=== PATIENT | female | born 1975 | race Two or more races ===

== ENCOUNTER 2024-04-12 10:10 | Observation (INO) | payer MEDICAID, SELFPAY ==
[2024-04-12 10:25] VITALS: BP 90/60; PULSE 85; RESP 17; TEMP 36.9; O2SAT 96; BMI 25.4
--- NOTE | 2024-04-12 10:32 | XR_ITS ---
Examination: CT abdomen and pelvis without contrast. Coronal 3-D reconstructions. Sagittal 2-D reconstructions. Date and time of exam:April 04, 2024 1333 hrs. Indications: Epigastric pain and vomiting onset today CTDI: vol (mGy): 7.26 DLP: (mGycm): 106 Technique: Axial images of the abdomen have been obtained, 3 mm slice thickness Intravenous contrast material has not been administered. Low dose protocols were performed. One or more of the following dose reduction techniques were used; automated exposure control, adjustment of the mA and/or KV according to patient size, use of iterative reconstruction technique. Findings: No aspiration pneumonia No focal liver or splenic lesion Absent gallbladder No pancreatic or adrenal mass No renal or ureteral calculi, no hydronephrosis Aorta normal size 20 mm fat-containing umbilical hernia Fluid-filled enlarged inflamed appendix medial to the cecum, axial images 133 through 151 No free air No pelvic abscess No pelvic mass Contracted urinary bladder Impression: Acute appendicitis Negative for pelvic abscess
--- NOTE | 2024-04-12 10:33 | PD.EDABDPN ---
ED Abdominal Pain RME/HPI General Chief Complaint: Abdominal Pain Stated complaint: Abdominal pain/epigastric pain Time seen by provider: 04/12/24 10:19 Arrival date/time: 04/12/24 10:10 48-year-old female with a history of a cholecystectomy presents to the emergency room with a chief complaint of 10 out of 10 epigastric pain that radiates to the left upper and lower quadrants x 3 days Source: patient Mode of arrival: ambulatory Limitations: no limitations Related Data Allergies Allergy/AdvReac Type Severity Reaction Status Date / Time No Known Allergies Allergy Verified 04/12/24 10:16 Review of Systems Review of Systems Systems Reviewed: All systems reviewed, normal except as documented Constitutional Constitutional: Reports system reviewed and no additional complaints, except as documented, Denies fatigue, Denies fever(s), Denies headache(s) and Denies weakness Eyes Eyes: Reports system reviewed and no additional complaints, except as documented, Denies blurry vision and Denies change in vision ENT Ears, Nose, Mouth, and Throat: Reports system reviewed and no additional complaints, except as documented, Denies otalgia, Denies headache(s), Denies nasal congestion, Denies throat swelling and Denies vertigo Cardiovascular Cardiovascular: Reports system reviewed and no additional complaints, except as documented, Denies chest pain, Denies dyspnea and Denies dyspnea on exertion Respiratory Respiratory: Reports system reviewed and no additional complaints, except as documented, Denies chest congestion, Denies cough, Denies dyspnea, Denies dyspnea on exertion and Denies wheezing Gastrointestinal Gastrointestinal: Reports system reviewed and no additional complaints, except as documented, Reports abdominal pain, Reports cramping, Reports nausea and Reports vomiting Genitourinary Genitourinary: Reports system reviewed and no additional complaints, except as documented Musculoskeletal Musculoskeletal: Reports system reviewed and no additional complaints, except as documented and Denies back pain Integumentary/Breasts Skin/Breast: Reports system reviewed and no additional complaints, except as documented and Denies wounds Neurologic Neurologic: Reports system reviewed and no additional complaints, except as documented, Denies confusion, Denies headache(s), Denies lack of coordination, Denies vertigo and Denies weakness Psychiatric Psychiatric: Reports system reviewed and no additional complaints, except as documented, Denies anxiety, Denies confusion, Denies depression, Denies paranoia, Denies suicidal ideation and Denies tactile hallucinations Endocrine Endocrine: Reports system reviewed and no additional complaints, except as documented and Denies fatigue Hematologic/Lymphatic Hematologic/Lymphatic: Reports system reviewed and no additional complaints, except as documented and Denies lymphadenopathy Allergic/Immunologic Allergic/Immunologic: Reports system reviewed and no additional complaints, except as documented, Denies throat swelling, Denies urticaria and Denies wheezing Past Medical History Past Medical History CARDIAC: Negative Congestive Heart Failure RESPIRATORY: Negative Chronic Obstructive Pulmonary Disease (COPD) GASTROINTESTINAL: Positive Gall Bladder Disease (cholelithiasis) GENITOURINARY: Negative Renal Disease ENDOCRINE: Negative Diabetes Mellitus Type 1 or Diabetes Mellitus Type 2 Social History SMOKING STATUS: Current some day smoker ED Exam General Limitations: Present no limitations General appearance: Present alert and in no apparent distress Head Head exam: Present atraumatic Eye Eye exam: Present normal appearance, PERRL and EOMI ENT ENT exam: Present normal exam, normal oropharynx and mucous membranes moist Neck Neck exam: Present normal inspection, full ROM and trachea midline Chest Chest inspection: Present normal inspection and symmetric chest wall rise Respiratory Respiratory exam: Present normal lung sounds bilaterally Cardiovascular Cardiovascular exam: Present regular rate, normal rhythm and normal heart sounds Abdominal Exam Abdominal exam: Present soft, tenderness and normal bowel sounds; Absent Ceja's sign Abdominal tenderness: Present epigastrium and moderate Extremities Exam Extremities exam: Present normal inspection and full ROM Back Exam Back exam: Present normal inspection and full ROM Neurological Exam Neurological exam: Present alert, oriented X3 and CN II-XII intact Psychiatric Psychiatric exam: Present normal affect and normal mood Skin Skin exam: Present warm, dry, intact and normal color Course Quality Measures none Orders Category Date Time Status Admit to Inpatient Status Routine Admission 04/12/24 16:47 Active Patient Condition Routine Admission 04/12/24 16:47 Ordered COVID-19 Screening Questionnaire NOW Care 04/12/24 16:[address] Screening NOW Care 04/12/24 15:37 Active Decision to Admit X1 Care 04/12/24 16:46 Active Notify provider NEEDED Care 04/12/24 16:47 Active Vital Signs, Non-Routine Q4H Care 04/12/24 17:00 Ordered Vital Signs, Non-Routine Q4H Care 04/12/24 21:[address] abdomen pelvis w con Stat Exams 04/12/24 15:[address] abdomen pelvis wo con Stat Exams 04/12/24 10:32 Completed Blood Culture (Lab) Routine Lab 04/12/24 16:49 Ordered CBC AM DRAW Lab 04/13/24 05:00 Ordered CBC Stat Lab 04/12/24 10:44 Completed CMP [Comprehensive Metabolic Panel] Stat Lab 04/12/24 10:44 Completed HCG Qualitative,Urine Stat Lab 04/12/24 12:45 Completed Lipase Stat Lab 04/12/24 10:44 Completed Renal Function Panel AM DRAW Lab 04/13/24 05:00 Ordered Renal Function Panel AM DRAW Lab 04/14/24 05:00 Ordered Renal Function Panel AM DRAW Lab 04/15/24 05:00 Ordered UA [Urinalysis] Stat Lab 04/12/24 12:45 Completed Urine Culture Stat Lab 04/12/24 12:45 Received Acetaminophen Tab [Tylenol ES Tab] Med 04/12/24 15:36 Discontinued 1,000 mg PO X1 ONE Enoxaparin [Lovenox] Med 04/12/24 17:00 Active 40 mg SC QDAY Morphine Inj Med 04/12/24 15:20 Discontinued 4 mg IVP X1 ONE Ondansetron Inj [Zofran Inj] Med 04/12/24 15:20 Discontinued 4 mg IV X1 ONE Piper/Tazo Inj [Zosyn Inj] 3.375 gm Med 04/12/24 15:37 Discontinued SODIUM CHLORIDE 0.9% (Popper) [NS 0.9% (Popper)] 50 ml IV X1 Ringers Lactated 1000 ml [Lactated Ringers] 1,000 ml Med 04/12/24 17:00 Active IV 125 mls/hr Sodium Chloride 0.9% 1000 ml [Ns] 1,000 ml Med 04/12/24 15:20 Discontinued IV 999 mls/hr cefTRIAXone [Rocephin] 1,000 mg Med 04/13/24 09:00 Active SODIUM CHLORIDE 0.9% (Popper) [NS 0.9% (Popper)] 50 ml IV QDAY metroNIDAZOLE/NS 500 MG IVPB [Flagyl 500 mg IV] Med 04/12/24 16:50 Active 500 mg in 100 ml IV Q8HR mg Hyd/Al Hyd/Mona Susp [Maalox Susp] Med 04/12/24 10:32 Discontinued 30 ml PO X1 ONE Code Status Routine Oth 04/12/24 16:46 Ordered Vital Signs Vital signs: Vital Signs Temperature 98.5 F 04/12/24 10:25 Pulse Rate 85 04/12/24 10:25 Respiratory Rate 17 04/12/24 10:25 Blood Pressure 90/60 04/12/24 10:25 Pulse Oximetry (%) 96 04/12/24 10:25 Oxygen Delivery Method Room Air 04/12/24 10:25 O2 saturation 96% within normal limits Abdominal Pain MDM MDM Narrative MDM Narrative:: 48-year-old female with a history of a cholecystectomy presents to the emergency room with a chief complaint of 10 out of 10 epigastric pain that radiates to the left upper and lower quadrants x 3 days Patient is hemodynamically stable and in no apparent distress Physical examination shows left lower quadrant abdominal pain and tenderness as well as suprapubic 10 out of 10 abdominal pain with palpation. CT of the abdomen pelvis was completed and shows acute appendicitis. Dr Fox our general surgeon on-call was consulted and he would like the patient admitted with a hospitalist and he will follow-up. All his orders were placed. I called the hospitalist Dr. Alexander and he will admit the patient for acute appendicitis. Patient data External records reviewed:: [facility] previous records Clinical information provided by:: patient Social determinants that could affect healthcare access:: none Patient has the following chronic illnesses:: No chronic illness How is presenting disease/condition affected by chronic disease/condition?: no chronic disease Evaluation data The following diagnostics were reviewed and interpreted by me:: lab results and radiology exam(s) Lab and/or radiology exams considered but not ordered:: Labs and radiology exams considered and ordered Interpretation Summary: Abdomen CT-Findings: No aspiration pneumonia No focal liver or splenic lesion Absent gallbladder No pancreatic or adrenal mass No renal or ureteral calculi, no hydronephrosis Aorta normal size 20 mm fat-containing umbilical hernia Fluid-filled enlarged inflamed appendix medial to the cecum, axial images 133 through 151 No free air No pelvic abscess No pelvic mass Contracted urinary bladder Impression: Acute appendicitis Negative for pelvic abscess Medications / Prescriptions Medications or Prescriptions considered but not ordered:: No medication given Medication administrations:: Medication Administration History Enoxaparin Sodium (Enoxaparin Sod Inj 40 Mg/0.4 Ml Syringe) 40 mg SC QDAY DEWARD Stop: 04/26/24 16:59 Lactated Ringer's (Lactated Ringers) 1,000 mls @ 125 mls/hr IV .Q8H EDWARD Stop: 05/12/24 16:59 Ceftriaxone Sodium 1,000 mg/ (Sodium Chloride) 50 mls @ 100 mls/hr IV QDAY EDWARD Stop: 04/20/24 08:59 Metronidazole (Flagyl 500 Mg Iv) 500 mg in 100 mls @ 200 mls/hr IV Q8HR EDWARD Stop: 04/19/24 16:49 Discontinued Medications Acetaminophen (Acetaminophen 500 Mg Tablet) 1,000 mg PO X1 ONE Stop: 04/12/24 15:37 Last Admin: 04/12/24 16:08 Dose: 1,000 mg Documented By: BD Al Hydrox/Mg Hydrox/Simethicone (Mg Hyd/Al Hyd/Mona (Maalox Reg) Susp 30 Ml Udc) 30 ml PO X1 ONE Stop: 04/12/24 10:33 Last Admin: 04/12/24 10:36 Dose: 30 ml Documented By: BD Sodium Chloride (Ns) 1,000 mls @ 999 mls/hr IV .Q1H1M ONE Stop: 04/12/24 16:20 Last Admin: 04/12/24 16:31 Dose: 999 mls/hr Documented By: BD Piperacillin Sod/Tazobactam (Sod 3.375 gm/ Sodium Chloride) 50 mls @ 100 mls/hr IV X1 ONE Stop: 04/12/24 16:06 Last Infusion: 04/12/24 16:44 Dose: Infused Documented By: Admin: 04/12/24 16:30 Dose: 100 mls/hr Documented By: BD Morphine Sulfate (Morphine Sulf Inj 10 Mg/Ml Vial) 4 mg IVP X1 ONE Stop: 04/12/24 15:21 Last Admin: 04/12/24 16:11 Dose: 4 mg Documented By: BD Ondansetron HCl (Ondansetron Inj 2 Mg/Ml Inj 2 Ml) 4 mg IV X1 ONE; Protocol Stop: 04/12/24 15:21 Last Admin: 04/12/24 16:12 Dose: 4 mg Documented By: BD Medication given Consultations Consultation(s) initiated? (list below): Yes Consultation #1 (Physician, Specialty, Details): Dr Fox general surgeon Time: 15:00 Diagnosis Differential diagnosis abdominal pain: abdominal pain, acute appendicitis, constipation, diverticulitis, gastroenteritis and small bowel obstruction Most likely diagnosis given after review of the tests above:: Acute appendicitis Admission Indicated Admission indicated?: indicated Admission Request Was there a request for admission?: Yes Admission Attestation Admission request attestation: Discussed case with [] from Hospitalist service regarding admission. Discussed patients ED course, exam findings, labs, and radiology results. The Hospitalist [agrees,declines] to accept the patient for admission. Disposition Plan Disposition Plan: Admit Discharge Plan Plan Patient Disposition: HOME (Self Care) Disposition Comment: Stable Prescriptions/Referrals Referrals: No Primary/Family,Physician [Primary Care Provider] - In 1 week Problem List Clinical Impression: Acute appendicitis, Nausea & vomiting Patient/Caregiver Discharge Instructions Print Language: [place]orese Stand Alone Forms: Nicolette Award Info., Patient Portal Info Letter
[2024-04-12] MEDS: MG HYD/AL HYD/SIME (Maalox Reg) SUSP 30 ML UDC PO (10:36)
[2024-04-12 11:14] LABS: Basophils % (Auto) 0 % (0-2.5); Eosinophils % (Auto) 0 % (0-10); Hematocrit 37.5 % (36.0-46.0); Hemoglobin 12.4 g/dL (12.0-16.0); Immature Granulocytes % (Auto) 1 % (0-0); Immature Granulocytes Auto 0.09 Thou/mm3 (0.00-0.00); Lymphocytes # (Auto) 0.3 Thou/mm3 (1.0-4.8); Lymphocytes % (Auto) 2 % (10-50); Mean Corpuscular HGB Conc 33.1 g/dl (31.0-37.0); Mean Corpuscular Hemoglobin 26.7 pg (25.0-35.0); Mean Corpuscular Volume 81 fL (80-100); Monocytes # (Auto) 0.3 Thou/mm3 (0.0-0.8); Monocytes % (Auto) 2 % (0-12); Neutrophils # (Auto) 14.8 Thou/mm3 (1.8-7.7); Neutrophils % (Auto) 96 % (37-80); Nucleated Red Blood Cell % 0 /100 WBC (0); Platelet Count 218 Thou/mm3 (140-440); RDW Standard Deviation 42.6 fL (36.4-46.3); Red Blood Count 4.64 Miln/mm3 (4.00-5.20); White Blood Count 15.5 Thou/mm3 (3.6-11.0)
[2024-04-12 11:33] LABS: Alanine Aminotransferase 48 U/L (10-49); Albumin, Serum 4.4 gm/dL (3.5-5.0); Albumin/Globulin Ratio 1.8 (1.2-2.2); Alkaline Phosphatase 115 U/L (46-116); Anion Gap 9 (7-16); Aspartate Amino Transferase 96 U/L (0-34); BUN/Creatinine Ratio 13 Ratio (12-20); Bilirubin,Total 1.1 mg/dL (0.3-1.2); Blood Urea Nitrogen 10 mg/dL (9-23); Calcium 9.2 mg/dL (8.3-10.6); Calcium (Corrected) 9.2 mg/dL (8.5-10.1); Carbon Dioxide 23.3 mMol/L (20.0-31.0); Chloride 104 mMol/L (98-107); Creatinine (Component) 0.8 mg/dL (0.6-1.3); Estimated Creatinine Clearance 81.9 mL/min (>60); Globulin 2.5 gm/dL (2.3-3.5); Glucose 123 mg/dL (74-106); Lipase 33 U/L (12-53); Osmolality,Calculated 271 (275-295); Potassium 3.6 mMol/L (3.4-5.1); Sodium 136 mMol/L (136-145); Total Protein 6.9 gm/dL (5.7-8.2); eGFR > 60 See Note
[2024-04-12 13:03] LABS: Collection Type, Urine Clean Catch
[2024-04-12 13:11] LABS: HCG Qualitative,Urine Negative
[2024-04-12 13:17] LABS: Bilirubin,Urine Negative (Negative); Blood,Urine 1+ (Negative); Clarity,Urine Turbid (Clear/Hazy); Color,Urine Yellow (Lt Yel-Yel); Glucose, Urine Negative (Negative); Ketones,Urine 2+ (Negative); Leukocyte Esterase,Urine Negative (Negative); Nitrite,Urine Negative (Negative); Protein,Urine 1+ (Neg - Trace); RBC,Urine 5 /hpf (0-3); Specific Gravity,Urine 1.022 (1.001-1.035); Squamous Epithelial Cell,Urine 7 /hpf (0-5); Urobilinogen,Urine Negative mg/dL (0.0-1.0); WBC,Urine 5 /hpf (0-5)
[2024-04-12 15:34] VITALS: BP 103/68; PULSE 90; RESP 18; TEMP 38.2; O2SAT 100
--- NOTE | 2024-04-12 15:36 | XR_ITS ---
Examination: CT abdomen with intravenous contrast CT pelvis with intravenous contrast 2-D coronal reconstructions 2-D sagittal reconstructions Date and time of exam:April 04, 2024 1714 hrs. Indications: Epigastric pain and vomiting beginning today. CTDI: vol (mGy) 6.62 DLP: (mGycm) 372 Technique: Multiple axial sections of the abdomen and pelvis have been obtained. 64 slice high-resolution scanner used. 3 mm axial sections have been obtained, post intravenous 60 cc [id number] 2-D sagittal, coronal reconstructions obtained. Low dose protocols were performed. One or more of the following dose reduction techniques were used; automated exposure control, adjustment of the mA and/or KV according to patient size, use of iterative reconstruction technique. Findings: No focal liver or splenic lesions Absent gallbladder No pancreatic or adrenal mass No renal or ureteral calculi Aorta normal size Again noted acute appendicitis, fluid-filled enlarged inflamed appendix medial to the cecum, axial image 144 through 165 coronal images 75 through 60 Intact urinary bladder No pelvic abscess Impression: Acute appendicitis No pelvic abscess
[2024-04-12 16:08] VITALS: TEMP 38.2
[2024-04-12] MEDS: ACETAMINOPHEN 500 MG TABLET 1000 MG PO (16:08)
[2024-04-12] MEDS: MORPHINE SULF INJ 10 MG/ML VIAL 4 MG IVP (16:11)
[2024-04-12] MEDS: ONDANSETRON INJ 2 MG/ML INJ 2 ML 4 MG IV ×2 (16:12→17:36)
[2024-04-12] MEDS: PIPER/TAZO INJ 3.375 GM in SODIUM CHLORIDE 0.9% (Popper) 50 ML IV (16:30)
[2024-04-12] MEDS: SODIUM CHLORIDE 0.9% 1000 ML 1,000 ML 999 ML IV (16:31)
--- NOTE | 2024-04-12 16:56 | ESHP_ITS ---
<Statement entered by Zane Alexander MD - 04/14/24 13:24> I reviewed above note and agree with findings and plans. I have also personally examined the patient with medicine team and went over assessment and plan with medical team including business management intern and resident physician. Documentation for date of: 04/12/24 HPI - Hospitalist History of Present Illness History of present illness: 48-year-old female with previous history of cholecystectomy presented to the ER with complaints of epigastric pain radiating to the left upper and lower quadrant. Patient states that the pain has been going on for the past 3 days to have progressively gotten worse and denies any urinary respiratory symptoms. In the ER, patient underwent workup found to have leukocytosis and fevers of 100.8. Furthermore, CT abdomen pelvis noted acute appendicitis and subsequently started on IV antibiotic therapy and general surgery was consulted who recommended IM admission for IV antibiotics therapy and they would consult. Past Medical history: No known medical history Allergies: NKDA Medication: Not taking any medications Surgeries: C section and cholecystectomy Review of Systems Review of Systems Narrative Review of Systems: General: Denies fevers or chills. Heart: Denies chest pain or palpitation Lungs: Denies shortness of breath or cough . Abdomen: Denies diarrhea, constipation, bright red blood per rectum or melena. Neurology: Denies any changes in vision, weakness or difficulty speaking. The rest of review of system is otherwise negative except what is mentioned above Meds Home Medications and Allergies Allergies Allergy/AdvReac Type Severity Reaction Status Date / Time No Known Allergies Allergy Verified 04/12/24 10:16 Exam Vital Signs Temp Pulse Resp BP Pulse Ox O2 Del Method 100.8 F H 90 18 103/68 100 Room Air 04/12/24 16:08 04/12/24 15:34 04/12/24 15:34 04/12/24 15:34 04/12/24 15:34 04/12/24 15:34 Narrative Physical Exam: General: Alert and oriented to name, date of and place HEENT: Normocephalic, atraumatic Cardiac: Regular rate and rhythm, no murmurs Lungs: Clear to auscultation with no wheezing or crackles Abdomen: Tenderness to palpation with no guarding or rebound tenderness. Neurology: Cranial nerves II to XII intact and patient able to move all 4 extremities. Skin: No rash or edema. Results - Hospitalist Labs Diagrams: 04/12/24 10:44 04/12/24 10:44 Labs: Short CBC 04/12/24 Range/Units 10:44 WBC 15.5 H (3.6-11.0) Thou/mm3 Hgb 12.4 (12.0-16.0) g/dL Hct 37.5 (36.0-46.0) % Plt Count 218 (140-440) Thou/mm3 BMP 04/12/24 10:44 Sodium 136 Potassium 3.6 Chloride 104 Carbon Dioxide 23.3 BUN 10 Creatinine 0.8 Glucose 123 H Calcium 9.2 Liver Function 04/12/24 Range/Units 10:44 Total Bilirubin 1.1 (0.3-1.2) mg/dL AST 96 H (0-34) U/L ALT 48 (10-49) U/L Alkaline Phosphatase 115 (46-116) U/L Albumin 4.4 (3.5-5.0) gm/dL Urine 04/12/24 Range/Units 12:45 Urine Color Yellow (Lt Yel-Yel) Urine Clarity Turbid A (Clear/Hazy) Urine pH 6.0 (5.0-7.0) Ur Specific [place] 1.022 (1.001-1.035) Urine Protein 1+ A (Neg - Trace) Urine Glucose (UA) Negative (Negative) Assessment & Plan -Hospitalist Patient Synopsis 48-year-old with history of cholecystectomy presented with epigastric pain found to have acute appendicitis. 1. Acute appendicitis ? Found on CT imaging ? Lipase normal and no evidence of any pancreatitis ? Will start patient on Rocephin and Flagyl and obtain blood cultures. ? Appreciate general surgery input Healthcare Maintenance: DVT prophylaxis: Lovenox 40 mg daily Diet: N.p.o. Lines: PIV CODE STATUS: Full code Reason for hospitalization: Acute appendicitis on IV antibiotic therapy Quality Measures Quality Measures none
--- NOTE | 2024-04-12 17:21 | PC.NURSE ---
HOLD HEPARIN PER PHARMACOMETRICIAN KIN CALVO
[2024-04-12 17:26] VITALS: TEMP 36.9
[2024-04-12] MEDS: RINGERS LACTATED 1000 ML 1,000 ML 125 ML IV (17:47)
[2024-04-12] MEDS: metroNIDAZOLE/NS 500 MG IVPB 500 MG/100 ML BAG 200 MG IV ×2 (17:48→21:26)
[2024-04-12 18:45] VITALS: BP 88/58; PULSE 94; RESP 16; TEMP 36.6; O2SAT 98
[2024-04-12 18:46] VITALS: BMI 25.4
[2024-04-12] MEDS: RINGERS LACTATED 1000 ML 1,000 ML 999 ML IV (19:08)
--- NOTE | 2024-04-12 19:29 | PD.SURCONS ---
HPI Consult details Consult date: 04/12/24 Reason for consultation narrative: Patient was seen in consultation because of abdominal pain of 3 days duration associated with fever History of present illness: History of Massiel's revealed that the pain started 3 days ago and patient has not eaten for 2 days she has been having fever and chills and not have any bowel movements Review of Systems Constitutional Constitutional: Denies headache(s) and Denies weakness ENT Ears, Nose, Mouth, and Throat: Denies headache(s) and Denies vertigo Neurologic Neurologic: Reports system reviewed and no additional complaints, except as documented, Denies confusion, Denies headache(s), Denies lack of coordination, Denies vertigo and Denies weakness Psychiatric Psychiatric: Denies confusion Meds Home Medications and Allergies Allergies Allergy/AdvReac Type Severity Reaction Status Date / Time No Known Allergies Allergy Verified 04/12/24 10:16 Exam Vital Signs Temp Pulse Resp BP Pulse Ox O2 Del Method 97.9 F 94 16 88/58 L 98 Room Air 04/12/24 18:45 04/12/24 18:45 04/12/24 18:45 04/12/24 18:45 04/12/24 18:45 04/12/24 18:45 Narrative Exam Abdominal examination shows that patient has suprapubic tenderness. She has a midline surgical scar from the previous section. Her blood pressure is around 88 systolic Routine Abdominal Exam Comments: Localized tenderness in the suprapubic region Results Results: Laboratory Laboratory Narrative: Laboratory results show WBC of 15,000 with a shift to the left Results: Imaging Imaging narrative: CT scan shows acute appendicitis Assessment & Plan Additional Assessment Additional comments: Impression: Possible delayed appendicitis Plan Plan: Either we can treat this patient with IV antibiotics or surgery. Surgery symptoms may be causing problem with ileum and cecum especially if this appendix is not well-defined. I will follow the patient with you and decide if she needs surgery. Thank you
[2024-04-12 20:00] VITALS: BP 97/56; PULSE 64; RESP 20; TEMP 36.6; O2SAT 100
[2024-04-13] VITALS (11 sets, daily range): BP systolic 91–117; BP diastolic 48–68; PULSE 51–94; RESP 12–98; TEMP 36.1–37.9; O2SAT 96–100
[2024-04-13] MEDS: KETOROLAC INJ 30 MG/ML VIAL 15 MG IVP ×2 (04:34→21:27)
[2024-04-13] MEDS: metroNIDAZOLE/NS 500 MG IVPB 500 MG/100 ML BAG 200 MG IV ×3 (05:09→21:14)
[2024-04-13] MEDS: RINGERS LACTATED 1000 ML 1,000 ML 125 ML IV ×3 (05:12→21:22)
[2024-04-13 06:02] LABS: Basophils % (Auto) 0 % (0-2.5); Eosinophils % (Auto) 0 % (0-10); Hemoglobin 10.4 g/dL (12.0-16.0); Immature Granulocytes % (Auto) 0 % (0-0); Immature Granulocytes Auto 0.01 Thou/mm3 (0.00-0.00); Lymphocytes # (Auto) 0.3 Thou/mm3 (1.0-4.8); Lymphocytes % (Auto) 4 % (10-50); Mean Corpuscular HGB Conc 32.5 g/dl (31.0-37.0); Mean Corpuscular Hemoglobin 26.1 pg (25.0-35.0); Mean Corpuscular Volume 80 fL (80-100); Monocytes # (Auto) 0.3 Thou/mm3 (0.0-0.8); Monocytes % (Auto) 4 % (0-12); Neutrophils % (Auto) 92 % (37-80); Nucleated Red Blood Cell % 0 /100 WBC (0); Platelet Count 134 Thou/mm3 (140-440); Red Blood Count 3.99 Miln/mm3 (4.00-5.20); White Blood Count 6.5 Thou/mm3 (3.6-11.0)
[2024-04-13 06:28] LABS: Albumin, Serum 3.4 gm/dL (3.5-5.0); Anion Gap 9 (7-16); BUN/Creatinine Ratio 13 Ratio (12-20); Blood Urea Nitrogen 8 mg/dL (9-23); Calcium 7.9 mg/dL (8.3-10.6); Calcium (Corrected) 8.4 mg/dL (8.5-10.1); Carbon Dioxide 20.7 mMol/L (20.0-31.0); Chloride 106 mMol/L (98-107); Creatinine (Component) 0.6 mg/dL (0.6-1.3); Estimated Creatinine Clearance 109.2 mL/min (>60); Glucose 79 mg/dL (74-106); Osmolality,Calculated 269 (275-295); Phosphorous 1.4 mg/dL (2.4-5.1); Potassium 3.7 mMol/L (3.4-5.1); Sodium 136 mMol/L (136-145); eGFR > 60 See Note
--- NOTE | 2024-04-13 07:31 | ESPR_ITS ---
Documentation for date of: 04/13/24 Subjective Subjective Brief History: History of present illness revealed that the pain started 3 days ago and patient has not eaten for 2 days she has been having fever and chills and not have any bowel movements Narrative: Patient was seen today. She had pain earlier this morning requiring morphine. 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 The surgery to remove the appendix would eliminate the need for any future abdominal pain. But with nonoperative treatment there is a 20% chance of recurrence over the next year. This was explained to the patient as well as the surgical risks including bowel injury and difficulty in removing the appendix which might have ruptured requiring increased hospitalization. Patient is willing to go through the surgery which is planned this morning.
--- NOTE | 2024-04-13 09:09 | ESOP_ITS ---
Date of Procedure 04/13/24 Pre Op Diagnosis Acute appendicitis, delayed Post Op Diagnosis Same Procedure Laparoscopic appendectomy Findings Patient was found to have an inflamed appendix but without any perforation located medial to the cecum almost to the midline Procedure Description After the patient was placed in supine position and anesthesia was administered with endotracheal intubation. Abdomen was prepped with ChloraPrep solution and draped in a sterile manner. A timeout was performed and a small incision was made just above the umbilicus. Fascia was cleaned and Veress needle was inserted to obtain a pneumoperitoneum up to 15 mmHg. Then I introduced a 12 mm trocar at the umbilicus with a 10 mm camera. Patient was found to have extensive adhesions over the umbilical region and lower abdominal region which was precluding the visualization of the appendix and cecum. After using a trocar on the left side I used a harmonic darlene to release these adhesions using a 30 degree scope. Patient was kept in Trendelenburg position with the left lateral tilt. Intra-abdominal organs were visualized and this showed omentum covering the right lower quadrant. A 5 mm trocar was inserted in the right lower quadrant under direct vision and using a laparoscopic [place] I move the omentum and identified the appendix. Appendix was inflamed in its entire length and was located medial to the cecum. Another 5 mm trocar was inserted in the left lower quadrant under direct vision and using Harmonic dalrene I dissected the mesoappendix cauterizing the vessels. When the base of the appendix was reached this was stapled using an Endo cutter 35 power saad. Then the appendix was retrieved through the Endopouch through the umbilical port. Then after irrigating and cleaning the pelvis and the right lower quadrant all the trocars were pulled out and the pneumoperitoneum was let out. Fascia was closed with interrupted 0 Ethibond and then I injected half percent Marcaine with epinephrine for analgesia. Skin was then closed with interrupted 4-0 Monocryl subcuticular stitches and a Tegaderm dressing was applied. Patient tolerated the procedure well and returned to recovery room in stable condition. Anesthesia GETA Pathology / specimen Other (The inflamed appendix) IVF Infused 500 Estimated Blood Loss 20 Surgeon Sebastian Fox MD Surgical Staff Operation Date: 04/13/24 08:15 Case Staff Anesthesiologist: Yusef Beasley RN First Assistant: Mikala Josue
[2024-04-13 09:22] LABS: Magnesium 1.8 mg/dL (1.6-2.6)
--- NOTE | 2024-04-13 09:25 | SUR.PHASEI ---
Pt. arrived to recovery via gurney, eyes closed, oral airway in place, pt. receiving 8 liters 02 via oxymask, lung sounds clear, rhonchi noted upon inspiration, lap sites x3 to abdomen, sutures, 2x2 gauze and hypafix tape in place, no active bleeding or redness noted. Report received from Dr. Beasley and Deann MORGAN.
--- NOTE | 2024-04-13 09:45 | SUR.PHASEI ---
Called and gave report on pt. s/p surgery to Rachid MORGAN on M/S unit.
--- NOTE | 2024-04-13 09:50 | SUR.PHASEI ---
Pt. transferred to room 365 via NAZANIN walker, no c/o pain or nausea at this time, lap sites x3 CDI, pt. tolerating ice chips, IV flushed and Rachid floyd RN assumed care of pt.
[2024-04-13] MEDS: cefTRIAXone 1,000 MG in SODIUM CHLORIDE 0.9% (Popper) 50 ML 100 MG IV (10:20)
[2024-04-13] MEDS: ACETAMINOPHEN IVPB 1,000 MG/100 ML VIAL 250 MG IV ×3 (10:21→23:27)
[2024-04-13] MEDS: POT PHOS 15 mMol in NS 250 ML 15 MMOL/250 ML BAG 62.5 MMOL IV ×2 (10:22→14:44)
[2024-04-13] MEDS: ENOXAPARIN SOD INJ 40 MG/0.4 ML SYRINGE SC (10:22)
--- NOTE | 2024-04-13 11:13 | ESPR_ITS ---
<Statement entered by Zane Alexander MD - 04/18/24 04:06> I reviewed above note and agree with findings and plans. I have also personally examined the patient with medicine team and went over assessment and plan with medical team including automotive internet sales consultant and resident physician. Documentation for date of: 04/13/24 Subjective Subjective Interval history: Patient was not seen and examined at the bedside as patient was taken to the OR for appendicectomy due to acute appendicitis. Overnight, patient received dose of Toradol x 1 for abdominal discomfort. Morning vitals showed stable blood pressure. Labs showed white count within normal limits. Hemoglobin and platelet count dropped most likely dilutional. Chemistry panel was unremarkable. Kidney function remained stable. Phosphorus and magnesium were low and were repleted. U tox was negative. CT abdomen imaging was consistent with acute appendicitis. Blood cultures and urine culture pending. Patient is postoperative laparoscopic appendectomy. Operative report stated that patient did had inflamed appendix but without any perforation. Patient has been started on clear liquid diet per general surgery recommendation. Electrolytes were repleted. Will continue with Rocephin and fluid resuscitation with LR. Follow- up with cultures tomorrow. Anticipating discharge tomorrow if patient remains stable. All labs and orders were reviewed. Exam Vital Signs Temp Pulse Resp BP Pulse Ox O2 Del Method O2 Flow Rate 97.0 F 83 12 106/64 99 Room Air 3 04/13/24 09:45 04/13/24 09:45 04/13/24 09:45 04/13/24 09:45 04/13/24 09:45 04/13/24 08:00 04/13/24 09:35 Narrative Exam GENERAL APPEARANCE: AxOx4, generally well-appearing female in mild distress due to pain. HEENT: NC, AT. MMM. EOMI, clear conjunctiva, oropharynx clear. NECK: Supple without lymphadenopathy. No stiffness or restricted ROM. HEART: Regular rate and regular rhythm, normal S1/S2, no m/r/g LUNGS: CTAB, moving air well. No crackles or wheezes are heard. ABDOMEN: Soft, mild tenderness at surgical site, nondistended with good bowel sounds heard. BACK: No CVAT, no obvious deformity. EXTREMITIES: Without cyanosis, clubbing or edema. NEUROLOGICAL: Grossly nonfocal. Alert and oriented, moving all 4 extremities. CN not formally tested but appear grossly intact. Observed to ambulate with normal gait. Skin: Warm and dry without any rash. Psych: Appropriate mood and affect Objective Labs 04/13/24 05:19 04/13/24 05:19 Labs: Laboratory Results - last 24 hr 04/12/24 04/12/24 04/13/24 10:44 12:45 05:19 WBC 15.5 H 6.5 D RBC 4.64 3.99 L Hgb 12.4 10.4 L D Hct 37.5 32.0 L MCV 81 80 MCH 26.7 26.1 MCHC 33.1 32.5 RDW Std Deviation 42.6 43.0 Plt Count 218 134 L D Neut % (Auto) 96 H 92 H Lymph % (Auto) 2 L 4 L [place] % (Auto) 2 4 Eos % (Auto) 0 0 Baso % (Auto) 0 0 Neut # (Auto) 14.8 H 6.0 Lymph # (Auto) 0.3 L 0.3 L [place] # (Auto) 0.3 0.3 Eos # (Auto) 0.0 0.0 Baso # (Auto) 0.0 0.0 Immature Gran # (Auto) 0.09 H 0.01 H Absolute Nucleated RBC 0.00 0.00 Immature Gran % 1 H 0 Nucleated RBC % 0 0 Sodium 136 136 Potassium 3.6 3.7 Chloride 104 106 Carbon Dioxide 23.3 20.7 Anion Gap 9 9 BUN 10 8 L Creatinine 0.8 0.6 Estim Creat Clear Calc 81.9 109.2 eGFR > 60 > 60 BUN/Creatinine Ratio 13 13 Glucose 123 H 79 Calculated Osmolality 271 L 269 L Calcium 9.2 7.9 L Corrected Calcium 9.2 8.4 L Phosphorus 1.4 L Magnesium 1.8 Total Bilirubin 1.1 AST 96 H ALT 48 Alkaline Phosphatase 115 Total Protein 6.9 Albumin 4.4 3.4 L D Globulin 2.5 Albumin/Globulin Ratio 1.8 Lipase 33 Ur Collection Type Clean Catch Urine Color Yellow Urine Clarity Turbid A Urine pH 6.0 Ur Specific Echo 1.022 Urine Protein 1+ A Urine Glucose (UA) Negative Urine Ketones 2+ A Urine Blood 1+ A Urine Nitrite Negative Urine Bilirubin Negative Urine Urobilinogen (Auto) Negative Ur Leukocyte Esterase Negative Urine RBC 5 H Urine WBC 5 Ur Squamous Epith Cells 7 H Urine Bacteria None Urine HCG, Qual Negative Quality Measures Quality Measures VTE prophylaxis (Lovenox) Assessment & Plan Assessment Current Active Medications: Generic Name Dose Route Start Last Admin Trade Name Freq PRN Reason Stop Dose Admin Enoxaparin Sodium 40 mg 04/12/24 17:00 04/13/24 10:22 Enoxaparin Sod Inj 40 Mg/0.4 Ml Syringe SC 04/26/24 16:59 40 mg QDAY EDWARD Administration Lactated Ringer's 1,000 mls @ 125 mls/hr 04/12/24 17:00 04/13/24 10:22 Lactated Ringers IV 05/12/24 16:59 125 mls/hr .Q8H EDWARD Administration Ceftriaxone Sodium 1,000 mg/ 50 mls @ 100 mls/hr 04/13/24 09:00 04/13/24 10:20 Sodium Chloride IV 04/20/24 08:59 100 mls/hr QDAY EDWARD Administration Metronidazole 500 mg in 100 mls @ 200 mls/hr 04/12/24 16:50 04/13/24 05:09 Flagyl 500 Mg Iv IV 04/19/24 16:49 200 mls/hr Q8HR EDWARD Administration Potassium Phosphate 15 mmol in 250 mls @ 62.5 mls/hr 04/13/24 08:01 04/13/24 10:22 Pot Phos 15 Mmol In Ns 250 Ml IV 04/13/24 12:00 62.5 mls/hr X1 ONE Administration Potassium Phosphate 15 mmol in 250 mls @ 62.5 mls/hr 04/13/24 13:00 Pot Phos 15 Mmol In Ns 250 Ml IV 04/13/24 16:59 X1 ONE Acetaminophen 1,000 mg in 100 mls @ 250 mls/hr 04/13/24 18:00 Ofirmev Inj IV 04/14/24 06:23 Q6HR EDWARD Ketorolac Tromethamine 15 mg 04/13/24 08:08 Ketorolac Inj 30 Mg/Ml Vial IVP 04/18/24 08:07 Q6HR PRN PAIN SCALE 4-10(Mod-Sev Plan This 48-year-old with history of cholecystectomy presented with epigastric pain found to have acute appendicitis. Patient is postop laparoscopic appendectomy performed today. #Status post laparoscopic appendectomy due to acute appendicitis ? Patient presented with epigastric pain. CT abdomen was consistent with acute appendicitis. ? Lipase normal and no evidence of any pancreatitis ?Per operative report, appendix was inflamed without perforation Plan: ? Continue Rocephin and Flagyl ? Follow-up on blood cultures/urine cultures ? General Surgery, Dr. Wise recommended to start clear liquid diet as tolerated ? Pain management as needed ? Trend WBC and monitor for fever spike ? Replete electrolytes as necessary ? Follow-up with CBC #Mild hypotension ? Patient blood pressure has been soft however maintaining MAP above 65 Plan ? Continue IV fluid resuscitation with LR #Normocytic anemia # Thrombocytopenia, most likely dilutional ? Hemoglobin dropped at 10.4 ? Platelet dropped at 134 ? Albumin 3.4 Plan: ? Daily CBC ? PRBC if hemoglobin drop below 7 ? Continue to monitor #Electrolyte disturbance #Hypophosphatemia ? Phosphorus 1.4 Plan ? 30 mmol K-Phos given x 1 Healthcare Maintenance: DVT prophylaxis: Lovenox 40 mg daily Diet: Clear liquid diet Lines: PIV CODE STATUS: Full code Reason for hospitalization: Patient underwent laparoscopic appendectomy for acute appendicitis. Started on clear liquid diet. Pending blood cultures. Patient was seen and discussed with attending physician, Dr.Obad Dr. Candie MD, PGY 2
[2024-04-13] MEDS: DOCUSATE SOD 100 MG CAPSULE PO (21:52)
[2024-04-13] MEDS: SIMETHICONE 80 MG CHEW PO (21:52)
[2024-04-14] VITALS: BP 97/64; PULSE 58; RESP 18; TEMP 36.5; O2SAT 99
[2024-04-14] MEDS: METOCLOPRAMIDE INJ 5 MG/ML VIAL 2 ML 10 MG IVP (03:56)
[2024-04-14 04:00] VITALS: BP 96/55; PULSE 61; RESP 18; TEMP 36.6; O2SAT 99
[2024-04-14] MEDS: ACETAMINOPHEN IVPB 1,000 MG/100 ML VIAL 250 MG IV (05:22)
[2024-04-14] MEDS: metroNIDAZOLE/NS 500 MG IVPB 500 MG/100 ML BAG 200 MG IV ×2 (05:23→14:59)
[2024-04-14 05:36] LABS: Albumin, Serum 3.2 gm/dL (3.5-5.0); Anion Gap 8 (7-16); BUN/Creatinine Ratio 14 Ratio (12-20); Blood Urea Nitrogen 7 mg/dL (9-23); Calcium 8.2 mg/dL (8.3-10.6); Calcium (Corrected) 8.8 mg/dL (8.5-10.1); Chloride 110 mMol/L (98-107); Creatinine (Component) 0.5 mg/dL (0.6-1.3); Glucose 117 mg/dL (74-106); Magnesium 1.8 mg/dL (1.6-2.6); Osmolality,Calculated 280 (275-295); Potassium 3.9 mMol/L (3.4-5.1); Sodium 141 mMol/L (136-145); eGFR > 60 See Note
[2024-04-14 05:54] LABS: Basophils % (Auto) 0 % (0-2.5); Eosinophils % (Auto) 0 % (0-10); Hematocrit 30.5 % (36.0-46.0); Hemoglobin 9.9 g/dL (12.0-16.0); Immature Granulocytes % (Auto) 0 % (0-0); Immature Granulocytes Auto 0.02 Thou/mm3 (0.00-0.00); Lymphocytes # (Auto) 0.5 Thou/mm3 (1.0-4.8); Lymphocytes % (Auto) 10 % (10-50); Mean Corpuscular HGB Conc 32.5 g/dl (31.0-37.0); Mean Corpuscular Hemoglobin 26.5 pg (25.0-35.0); Mean Corpuscular Volume 82 fL (80-100); Monocytes # (Auto) 0.3 Thou/mm3 (0.0-0.8); Monocytes % (Auto) 6 % (0-12); Neutrophils # (Auto) 4.1 Thou/mm3 (1.8-7.7); Neutrophils % (Auto) 84 % (37-80); Nucleated Red Blood Cell % 0 /100 WBC (0); Platelet Count 137 Thou/mm3 (140-440); RDW Standard Deviation 43.8 fL (36.4-46.3); Red Blood Count 3.74 Miln/mm3 (4.00-5.20); White Blood Count 4.9 Thou/mm3 (3.6-11.0)
--- NOTE | 2024-04-14 06:30 | PC.NURSE ---
Per MD Carpio will transfer back pt to Tele once he's going to calmed down a little bit after the Ativan IVP.
[2024-04-14 08:00] VITALS: BP 93/63; PULSE 68; RESP 18; TEMP 36.1; O2SAT 97
[2024-04-14] MEDS: cefTRIAXone 1,000 MG in SODIUM CHLORIDE 0.9% (Popper) 50 ML 100 MG IV (08:19)
[2024-04-14] MEDS: ENOXAPARIN SOD INJ 40 MG/0.4 ML SYRINGE SC (08:22)
[2024-04-14] MEDS: RINGERS LACTATED 1000 ML 1,000 ML 125 ML IV (08:35)
[2024-04-14] MEDS: KETOROLAC INJ 30 MG/ML VIAL 15 MG IVP (10:26)
[2024-04-14] MEDS: SIMETHICONE 80 MG CHEW PO (10:26)
[2024-04-14 10:43] VITALS: PULSE 74; RESP 19; RESP 98
--- NOTE | 2024-04-14 11:03 | PC.NURSE ---
Made MD Lynch aware of pts complains of excessive gas pain and not being able to pass gas. Pt also complained of dizziness upon getting her up made MD aware of current bp this morning. Per MD will round soon and decide on cont with Discharge.
[2024-04-14] MEDS: POLYETHYLENE GLYCOL 17 GM PACKET PO (11:09)
[2024-04-14 12:00] VITALS: BP 99/69; PULSE 67; RESP 15; TEMP 36.6; O2SAT 98
--- NOTE | 2024-04-14 12:28 | PD.SURPROG ---
Documentation for date of: 04/14/24 Subjective Subjective Brief History: History of present illness revealed that the pain started 3 days ago and patient has not eaten for 2 days she has been having fever and chills and not have any bowel movements Narrative: The patient is doing well since surgery even though she had an episode of dizziness when getting up. Exam Vital Signs Temp Pulse Resp BP Pulse Ox O2 Del Method O2 Flow Rate 97.0 F 74 19 93/63 97 Room Air 3 04/14/24 08:00 04/14/24 10:43 04/14/24 10:43 04/14/24 08:00 04/14/24 08:00 04/14/24 08:00 04/14/24 08:00 Her vital signs are normal on the blood pressure is around 90s Routine Abdominal Exam Comments: Abdominal examination is negative. Patient has not passed flatus Assessment & Plan Assessment Additional comments: Impression: Satisfactory recovery from laparoscopic appendectomy Plan Plan: We shall discharge patient today and I will be seeing her in my office for follow-up Procedures Procedures Laparoscopic appendectomy
[2024-04-14 16:00] VITALS: BP 122/84; PULSE 67; RESP 18; TEMP 36.4; O2SAT 99
--- NOTE | 2024-04-14 16:01 | PC.NURSE ---
Rounded with dr Oliva provided dc info and per MD orders cont with discharge for pt.
--- NOTE | 2024-04-14 17:03 | ESDS_ITS ---
<Statement entered by Zane Alexander MD - 04/20/24 21:47> I reviewed above note and agree with findings and plans. I have also personally examined the patient with medicine team and went over assessment and plan with medical team including integrated marketing intern and resident physician. Planned Discharge Date 04/14/24 DS: Providers Provider Date of admission: 04/12/24 16:46 Primary care physician: Physician No Primary/Family Admitting Provider: Zane Alexander MD Attending Provider on Admission: Zane Alexander MD Consults: 04/12/24 18:19 Consult to General Surgery Stat Comment: Consulting Provider: Sebastian Fox 04/12/24 22:20 [facility] Referral - Knowledge Deficit Routine Comment: Positive screening for knowledge deficit needs. Attending Provider on DC: Bebo Lynch MD Discharging Provider: Bebo Lynch MD DS: Diagnosis Problem List Completed Was Problem List Reviewed/Reconciled?: Yes Hospital Course Hospital Course Hospital course: Ms. Tubbs is a 48-year-old female with no significant past medical history presented to the ED on 04/12/2024 complaining of diffuse abdominal pain which had progressively gotten worse. Patient was found to have leukocytosis and fever CT of the abdomen pelvis showed acute appendicitis with no pelvic abscess. Patient was started on IV antibiotics and patient underwent laparoscopic a ppendectomy on 04/13/24 without complications. Patient is clinically and hemodynamically stable to be discharged home to self-care. Patient is advised to return to the ED if patient's symptoms recur or worsen. Discharge Recommendations -Avoid heavy lifting, do not lift more than 15lbs and slowly resume to normal care -Keep incision site clean and dry -Take pain medications as directed -Eat soft foods and drink plenty of water -Follow up out patient general surgery Dr. Cortes within 10 days call [phone] for an appointment time -Follow up outpatient with primary care within 2 weeks Hospitalization Diagnosis #Status post laparoscopic appendectomy due to acute appendicitis #Mild hypotension #Normocytic anemia # Thrombocytopenia, most likely dilutional #Hypophosphatemia-improved Assessment and plan discussed with my attending physician Dr. Benjamin Lynch (PGY-1)- Internal medicine resident Time Spent with Patient Time spent: Greater than 30 minutes Exam Vital Signs Temp Pulse Resp BP Pulse Ox O2 Del Method O2 Flow Rate 97.8 F 67 15 99/69 98 Room Air 3 04/14/24 12:00 04/14/24 12:00 04/14/24 12:00 04/14/24 12:00 04/14/24 12:00 04/14/24 12:00 04/14/24 08:00 Narrative Exam GENERAL: A&Ox3 . Awake, Not in acute distress NEURO: no focal neurological deficits HEENT: Atraumatic, Normocephalic. mucous membranes moist. Eyes open, symmetrical, & clear HEART: Normal Heart Sounds LUNGS: Clear to auscultation with no wheezing or crackles. ABDOMEN: soft, non-distended, non-tender, no guarding or rebound tenderness, incision sites are clean and dry SKIN: No Rash or ecchymoses EXTREMITIES: No edema, tenderness, able to move all 4 extremities, pedal pulses palpated Discharge Plan Plan Patient Disposition: HOME (Self Care) Disposition Comment: Stable Patient condition on transfer: Stable Care Plan Goals: -Avoid heavy lifting, do not lift more than 15lbs and slowly resume to normal care -Keep incision site clean and dry -Take pain medications as directed -Eat soft foods and drink plenty of water -Follow up out patient general surgery Dr. Cortes within 10 days call ?1999 for an appointment time -Follow up outpatient with primary care within 2 weeks -Evite levantar objetos pesados, no levante m?s de 15 libras y reanude lentamente el cuidado normal. -Mantener el sitio de la incisi?n limpio y seco. -[place] analg?sicos seg?n las indicaciones. -Fleming alimentos blandos y beber osmany agua. -Seguimiento del paciente ambulatorio de cirug?a general Dr. Cortes [phone]. dentro de los 10 d?as, llame al 1?1999 para programar daly michelle. -Seguimiento ambulatorio con atenci?n primaria dentro de 2 semanas. Pedrito senna para promover el movimineto intestinal Simethicone para aliviar con los gases Tylenol para dolor moderado y norco para dolor mas intenso Caminar yolanda para ayudar con el dolor provocado por gas accomulado. Prescriptions/Referrals Prescriptions/Med Rec: New hydrocodone-acetaminophen 5-325 mg tablet 1 tab PO Q8H MDD 15 PRN (Reason: pain (scale score 7-10)) Qty: 10 0RF Referrals: No Primary/Family,Physician [Primary Care Provider] - Patient/Caregiver Discharge Instructions Meds to Beds: No Discharge Activity: activity as tolerated Education Materials: Surgery for Appendicitis, Preventing Surgical Site Infections Print Language: Syriac Stand Alone Forms: Nicolette Award Info., Patient Portal Info Letter Discharge Order Discharge Orders: Discharge (Routine); Ordered 04/14/24 Ordered By: Diamond Oliva Quality Discharge Quality Measures none
== END 2024-04-14 17:20 | disposition home or self-care (01) ==
LOC: SERX 17:14 → S3NX 04-13 07:25 → SERHOLD 04-15 06:49 → S3NX 04-15 06:49
PROVIDERS: Nurse Practitioner Family; Student in an Organized Health Care Education/Training Program; Surgery; Admitting Provider Internal Medicine; Emergency Provider Emergency Medicine; Visit Provider Internal Medicine
PROC: 0DTJ4ZZ Resection of Appendix, Percutaneous Endoscopic Approach (ICD-10-PCS; CPT 44970; principal; 2024-04-13 08:00)
DX: K35.80 Unspecified acute appendicitis (principal); K42.9 Umbilical hernia without obstruction or gangrene; F17.200 Nicotine dependence, unspecified, uncomplicated; E87.8 Other disorders of electrolyte and fluid balance, not elsewhere classified; E83.39 Other disorders of phosphorus metabolism; D64.9 Anemia, unspecified
CPT/HCPCS: 44970; 36415; 74176; 74177; 80053; 80069; 81001; 81025; 83690; 83735; 85025; 87040; 87077; 87086; 87186; 96361; 96365; 96366; 96372; 96375; 99285; A4217; A4649; C1713; G0378; J0131; J0696; J1650; J1885; J2250; J2270; J2405; J2543; J2704; J2765; J3010; J3490; J7030; J7050; J7120; J7999; Q9967; A9270; J1836